=== PATIENT | female | born 1990 ===

== ENCOUNTER 2016-11-01 16:05 | Emergency (ER) | payer MEDICAID ==
[2016-11-01 16:14] VITALS: RESP 20
[2016-11-01] MEDS ORDERED: Sodium Chloride 0.9% 1,000 ML IV ONE (16:36)
[2016-11-01 16:46] LABS: RBC URINE 18 /hpf (0-3); URINE BACTERIA RARE (<OCC); URINE BILIRUBIN NEGATIVE (NEGATIVE); URINE BLOOD 3+ (NEGATIVE); URINE COLOR Yellow (YELLOW); URINE GLUCOSE (UA) NORMAL (Normal); URINE KETONE NEGATIVE (NEGATIVE); URINE LEUKOCYTE ESTERASE NEG Leu/uL (Negative); URINE PROTEIN NEGATIVE (NEGATIVE); URINE UROBILINOGEN NORMAL mg/dL (0.2-1.0); WBC URINE 1 /hpf (0-5)
[2016-11-01 16:58] LABS: BASO % 0.5 % (0.0-2.0); EOS # 0.1 K/uL (0.0-0.7); EOS % 0.8 % (0.0-4.0); HEMATOCRIT 39.3 % (34.0-47.0); LYMPH # 1.6 K/uL (1.0-4.3); LYMPH % 16.7 % (20.0-40.0); MEAN CELL VOLUME 90.7 fL (81.0-99.0); MEAN CORPUSCULAR HEMOGLOBIN 30.4 pg (27.0-31.0); MEAN CORPUSCULAR HGB CONC 33.5 g/dL (33.0-37.0); MEAN PLATELET VOLUME 8.7 fL (7.2-11.7); MONO # 0.4 K/uL (0.0-0.8); MONO % 4.1 % (0.0-10.0); RED CELL DISTRIBUTION WIDTH 13.4 % (11.5-14.5); WHITE BLOOD COUNT 9.5 K/uL (4.8-10.8)
[2016-11-01 17:02] LABS: CHLORIDE 98 mmol/L (98-107); POTASSIUM 3.6 mmol/L (3.6-5.2); SODIUM 139 mmol/L (132-148)
[2016-11-01 17:04] LABS: AST/SGOT 21 U/L (14-36); BILIRUBIN,TOTAL 0.4 mg/dL (0.2-1.3); CARBON DIOXIDE 23 mmol/L (22-30); GFR AFRICAN-AMERICAN > 60
[2016-11-01 17:05] LABS: ALB/GLOB RATIO 1.4 (1.0-2.1); ALKALINE PHOSPHATASE 60 U/L (38-126); ALT/SGPT 19 U/L (9-52); BLOOD UREA NITROGEN 15 mg/dL (7-17); CALCIUM 8.9 mg/dl (8.6-10.4); GLUCOSE,RANDOM 88 mg/dL (65-105); TOTAL PROTEIN 7.8 g/dL (6.3-8.3)
[2016-11-01] MEDS ORDERED: DiphenhydrAMINE 50 mg/ml Inj IVP STA (17:12)
[2016-11-01] MEDS ORDERED: DiphenhydrAMINE 50 mg/ml Inj ONE (17:21)
--- NOTE | 2016-11-01 18:26 | C.PDOC ---
History Of Present Illness 26-year-old female presents to the emergency department with complaints of migraine (B/L frontal) head that started yesterday. Pain worsens with sound and light, and is associated with nausea and light headedness. Patient states she was seen in [place] ED yesterday, was given Zofran and discharged. Patient notes she took an OTC sleep aid last night to help with symptoms, but when she woke up this morning, headache persisted, resulting in her coming to the ED for evaluation. Secondary complaint is prolonged vaginal bleed. Patient states LNMP was 09/21, after which she has been experiencing a "heavy" vaginal bleed consistent with menses. Patient admits to associated cramping pain in pelvis that radiates to lower-back. Patient is currently sexually active with one partner, does not use control. She denies visual changes, extremity weakness, sensory changes, vomiting, shortness of breath, chest pain. Time Seen by Provider: 11/01/16 16:26 Chief Complaint (Nursing): Female Genitourinary History Per: Patient History/Exam Limitations: no limitations Onset/Duration Of Symptoms: Days Current Symptoms Are (Timing): Still Present Severity: Moderate Quality Of Discomfort: "Pain" Abnormal Vaginal Bleeding: Yes Past Medical History Reviewed: Historical Data, Nursing Documentation, Vital Signs Vital Signs: Last Vital Signs Temp 98.1 F 11/01/16 18:34 Pulse 92 H 11/01/16 18:34 Resp 20 11/01/16 18:34 BP 118/73 11/01/16 18:34 Pulse Ox 99 11/01/16 18:34 - Medical History PMH: Migraine Family History: States: No Known Family Hx - Social History Hx Alcohol Use: No Hx Substance Use: No - Immunization History Hx Influenza Vaccination: No Review Of Systems Except As Marked, All Systems Reviewed And Found Negative. Constitutional: Negative for: Fever, Chills Cardiovascular: Negative for: Chest Pain, Palpitations Respiratory: Negative for: Cough, Shortness of Breath Gastrointestinal: Negative for: Nausea, Vomiting Genitourinary: Positive for: Vaginal Bleeding, Pelvic Pain (cramping) Musculoskeletal: Positive for: Back Pain Skin: Negative for: Rash Neurological: Positive for: Headache, Dizziness. Negative for: Weakness, Numbness, Incoordination, Change in Speech, Confusion, Altered Mental Status Physical Exam - Physical Exam Appears: Well, Non-toxic, In Acute Distress (in mild discomfort) Skin: Warm, Dry, No Rash Head: Atraumatic, Normacephalic Eye(s): bilateral: Normal Inspection ((+) photophobia), PERRL, EOMI Oral Mucosa: Moist Neck: Normal, Normal ROM Chest: Symmetrical Cardiovascular: Rhythm Regular Respiratory: Normal Breath Sounds, No Accessory Muscle Use, No Rales, No Rhonchi , No Wheezing Gastrointestinal/Abdominal: Normal Exam, Bowel Sounds, Soft, No Tenderness, No Guarding, No Rebound Pelvic: Normal External Exam, Normal Bimanual Exam, Vaginal Bleeding, No Vaginal Discharge, No Cervical Motion Tenderness, No Cervix Open, No Adnexal Tenderness, No Mass, Other (mild amount dried blood in vaginal vault) Extremity: Normal ROM Neurological/Psych: Oriented x3, Normal Speech, Normal Cognition, Normal Cranial Nerves, No Cerebellar Signs, Normal Motor, Normal Sensation ED Course And Treatment - Laboratory Results Result Diagrams: 11/01/16 16:51 11/01/16 16:51 O2 Sat by Pulse Oximetry: 100 (RA) Pulse Ox Interpretation: Normal Progress Note: Blood work, UA, Upreg ordered and reviewed. Patient given IV NS bolus, IV Reglan, IV Benadryl. Reevaluation Time: 18:20 Reassessment Condition: Improved (Patient reassessed, is currently resting comfortably, headache has resolved. Blood work, UA, Upreg (-). Patient instructed to follow up with her parasitology teacher within 1 week for further evaluation of her dysfunctional uterine bleeding. She was given Rx for fiorecet, and she understands she should return to ED if symptoms worsen.) Disposition Counseled Patient/Family Regarding: Studies Performed, Diagnosis, Need For Followup, Rx Given - Disposition Referrals: [facility] [Outside] [facility] [Outside] Disposition: HOME/ ROUTINE Disposition Time: 18:30 Condition: STABLE Additional Instructions: FOLLOW UP WITH [employer] MANAGER WITHIN 1 WEEK USE MEDICATION FOR MIGRAINES NEEDED RETURN TO ER IF SYMPTOMS WORSEN Prescriptions: Acetaminophen/Butalbital/Caf [Fioricet] 1 tab PO TID PRN #20 tab PRN Reason: Headache Instructions: Dysfunctional Uterine Bleeding (ED), Migraine Headache (ED) Print Language: MONGOLIAN - POA Present On Arrival: None - Clinical Impression Clinical Impression: Migraine, Dysfunctional uterine bleeding - Scribe Statement The provider has reviewed the documentation as recorded by the [place]ibdavid Ty All medical record entries made by the [place]ibdavid were at my direction and personally dictated by me. I have reviewed the chart and agree that the record accurately reflects my personal performance of the history, physical exam, medical decision making, and the department course for this patient. I have also personally directed, reviewed, and agree with the discharge instructions and disposition.
[2016-11-01 18:34] VITALS: BP 118/73; PULSE 92; TEMP 98.1
[2016-11-14 10:34] VITALS: O2SAT 100
== END 2016-11-01 18:34 | disposition home or self-care (01) ==
LOC: C.ER 16:05
DX: G43.909 Migraine, unspecified, not intractable, without status migrainosus (principal); N93.8 Other specified abnormal uterine and vaginal bleeding
CPT/HCPCS: 80053; 81001; 84702; 84703; 85025; 96361; 96374; 96375; 99283; J1200; J2765; J7040